=== PATIENT | female | born 1930 | race Caucasian/White ===

== ENCOUNTER 2016-09-18 05:52 | Emergency (ER) | payer OTHER, MEDICARE ==
[~2016-09-18] VITALS: Ht 170.2 cm; Wt 106.0 kg
[~2016-09-18 05:52] MED LIST: AMLODIPINE BESYL5 MG PO; ANTIVERT25 MG PO; ASPIR 8181 M1 PO; ATIVAN0.5 MG PO; AVAPRO150 MG PO; AVAPRO75 MG PO; AVENTYL,PAMELOR10 MG PO; AVENTYL,PAMELOR50 MG PO; AYR SALINE NA14.1 GM BOTH NARES; CIPRO500 MG PO; CLEOCIN150 MG PO; CLOPIDOGREL75 MG PO; DAILY VALUE1 EACH PO; ESSENTIAL DAIL1 EACH PO; FISH OIL300 MG PO; FLORASTOR250 MG PO; FLUPHENAZINE HCL1 MG PO; GABAPENTIN300 MG PO; LEVOTHYROXINE137 MCG PO; LORAZEPAM0.5 MG PO; MIRALAX255 GM PO; MIRTAZAPINE15 MG PO; MULTIVITAMIN1 EAC2 PO; NEILMED SINUS1 EAC1 NS; NEURONTIN300 MG PO; NORTRIPTYLINE H10 MG PO; NORTRIPTYLINE H25 MG PO; NORVASC2.5 MG PO; OMEGA-31000 M1 PO; PAMELOR50 MG PO; PLAVIX75 MG PO; PRAVASTATIN SOD40 MG PO; PRENATAL VITAM1 EAC4 PO; PROBIOTIC250 MG PO; PROLIXIN1 MG PO; RANITIDINE HCL75 MG PO; REMERON15 M2 PO; SALINE NASAL SP45 ML BOTH NARES; STOOL SOFTENER100 MG PO; SYSTANE 0.3-0.1 EACH BOTH EYES; SYSTANE NIGHTT3.5 GM BOTH EYES; SYSTANE ULTRA 015 ML BOTH EYES; TYLENOL EXTRA500 MG PO; TYLENOL REGULA325 MG PO; VITAMIN D1000 INTUN PO; ZANTAC75 M1 PO; ZITHROMAX Z-PA250 MG PO
[2016-09-18 06:14] LABS: HEMATOCRIT 33.1 % (36.0-46.0); MCH 25.8 PG (29.0-34.0); MCHC 30.2 G/DL (30.0-36.0); MCV 85.5 FL (83-99); MEAN PLAT.VOLUME 11.2 uM^3 (9.5-12.4); PLATELET COUNT 281 K/uL (156-360); RBC DIS.WIDTH-SD 52.7 % (39-53); RED BLOOD COUNT 3.87 M/uL (3.80-5.20); WHITE BLOOD COUNT 5.5 K/uL (4.1-10.2)
[2016-09-18 06:17] LABS: ADD MIUA? YES; BILIRUBIN NEGATIVE; BLOOD NEGATIVE; COLOR YELLOW ((YELLOW)); GLUCOSE (STRIP) NEGATIVE; KETONES NEGATIVE; LEUKOCYTES LARGE; NITRITE NEGATIVE; PROTEIN (STRIP) NEGATIVE; UROBILINOGEN 0.2 MG/DL (0.2-1.0)
[2016-09-18 06:22] LABS: CHLORIDE 104 mEq/L (99-109); POTASSIUM 4.3 mEq/L (3.7-5.4); SODIUM 140 mEq/L (136-147)
[2016-09-18 06:24] LABS: GLUCOSE 101 mg/dL (70-99)
[2016-09-18 06:25] LABS: ANION GAP 9 MEQ/L (2-14)
[2016-09-18 06:28] LABS: GFR ESTIMATE (CALCULATED) 50 mL/min/
[2016-09-18 06:29] LABS: UREA NITROGEN (BUN) 19 mg/dL (9-23)
[2016-09-18 06:30] LABS: BACTERIA RARE /HPF; BUDDING YEAST 1+; EPITHELIAL CELLS RARE /HPF; MUCUS NONE SEEN /LPF; RED BLOOD CELLS 0-5 /HPF (0-5); UCUL ADDED? YES; UNCLASSIFIED CASTS 0-5 /LPF; WHITE BLOOD CELLS TNTC /HPF (0-5)
[2016-09-18 06:33] LABS: INFLUENZA A VIRAL ANTIGEN NEGATIVE; INFLUENZA B VIRAL ANTIGEN NEGATIVE
[2016-09-18] MEDS ORDERED: LEVAQUIN500 MG PO (06:53)
[2016-09-18 09:46] VITALS: BP 143/58
== END 2016-09-18 09:52 | disposition home or self-care (01) ==
LOC: EME 05:52
PROVIDERS: Emergency Medicine
DX: S00.93XA Contusion of unspecified part of head, initial encounter (principal); N39.0 Urinary tract infection, site not specified; J06.9 Acute upper respiratory infection, unspecified; M79.605 Pain in left leg; W01.0XXA Fall on same level from slipping, tripping and stumbling without subsequent striking against object, initial encounter; I10 Essential (primary) hypertension; Z86.73 Personal history of transient ischemic attack (TIA), and cerebral infarction without residual deficits; Z96.642 Presence of left artificial hip joint; Z90.5 Acquired absence of kidney; Z88.0 Allergy status to penicillin; Z88.2 Allergy status to sulfonamides; Z87.891 Personal history of nicotine dependence
CPT/HCPCS: 70450; 71010; 73502; 80048; 81003; 85027; 87077; 87086; 87186; 87502; 99281; 99285

== ENCOUNTER 2016-10-06 06:48 | Inpatient (IN) | payer OTHER, MEDICARE ==
[~2016-10-06] VITALS: Ht 170.2 cm; Wt 107.4 kg
[~2016-10-06 06:48] MED LIST changes: +LEVAQUIN500 MG PO
[2016-10-06 08:52] LABS: BASE EXCESS 2.9 mEq/L (-3 to +3); BICARBONATE 27.9 mEq/L (22-26); CARBOXY HGB 1.6 % (0-5); PCO2 44 mm Hg (35-45); PO2 83 mm Hg (80-100); pH 7.41 (7.35-7.45)
[2016-10-06 08:53] LABS: EOSINOPHIL COUNT 0.2 K/uL (0-0.3); HEMATOCRIT 19.3 % (36.0-46.0); IMMATURE GRANULOCYTE (%) 0.6 % (0.0-0.7); IMMATURE GRANULOCYTE COUNT 0.1 K/uL; LYMPHOCYTE COUNT 1.7 K/uL (1.0-2.8); MCH 26.2 PG (29.0-34.0); MCHC 30.6 G/DL (30.0-36.0); MCV 85.8 FL (83-99); MEAN PLAT.VOLUME 11.4 uM^3 (9.5-12.4); MONOCYTE (%) 11.4 % (3-12); MONOCYTE COUNT 1.9 K/uL (0-0.8); NEUTROPHIL (%) 76.7 % (45-76); RBC DIS.WIDTH-CV 15.7 % (11.8-14.6); RBC DIS.WIDTH-SD 49.1 % (39-53)
[2016-10-06 08:58] LABS: COMMENTS - BLOOD GASES C+; DEVICE NC; O2 FLOW 3.5 L/MIN; SITE RR; TOTAL RESP RATE 16 resp/min
[2016-10-06] MEDS ORDERED: SENEXON8.6 MG PO (08:59)
[2016-10-06 09:06] LABS: ADD MIUA? NO; BILIRUBIN NEGATIVE; BLOOD NEGATIVE; COLOR YELLOW ((YELLOW)); GLUCOSE (STRIP) NEGATIVE; KETONES NEGATIVE; LEUKOCYTES NEGATIVE; NITRITE NEGATIVE; PROTEIN (STRIP) 30; SPECIFIC GRAVITY 1.019 (1.000-1.030); UCUL ADDED? NO; UROBILINOGEN 0.2 MG/DL (0.2-1.0)
[2016-10-06 09:08] LABS: ALKALINE PHOSPHATASE 83 IU/L (3-129); ANION GAP 8 MEQ/L (2-14); CHLORIDE 100 MEQ/L (99-109); GFR ESTIMATE (CALCULATED) > 59 mL/min/; GLUCOSE 99 mg/dL (70-99); SAMPLE HEMOLYSIS CHECK 0; SAMPLE ICTERIC CHECK 0; SAMPLE LIPEMIA CHECK 0; SODIUM 134 MEQ/L (136-147); TOTAL BILIRUBIN 0.6 MG/DL (0.0-1.0); UREA NITROGEN (BUN) 23 mg/dL (9-23)
[2016-10-06 09:09] LABS: TROP-I INTERPRETATION NEGATIVE; TROPONIN-I < 0.01 ng/mL (0.0-0.30)
[2016-10-06 09:15] LABS: PLATELET COUNT 420 K/uL (156-360); RED BLOOD COUNT 2.25 M/uL (3.80-5.20)
[2016-10-06 12:32] VITALS: BP 135/67
[2016-10-06] MEDS ORDERED: RANITIDINE HCL150 MG PO (13:25)
[2016-10-06] MEDS ORDERED: DAILY VITE1 EAC1 PO (13:28)
[2016-10-06] MEDS ORDERED: SENEXON-S TABL1 EACH PO (13:32)
[2016-10-06] MEDS ORDERED: TYLENOL EXTRA500 MG PO (13:34)
[2016-10-06] MEDS ORDERED: ATIVAN0.5 MG PO (13:35)
[2016-10-06] MEDS ORDERED: NYAMYC60 GM TP (13:39)
[2016-10-06] MEDS ORDERED: TESSALON PERLE100 MG PO (13:40)
[2016-10-06 17:56] VITALS: BP 180/77
[2016-10-06 18:14] LABS: INTER. NORMALIZED RATIO 1.1; PROTHROMBIN TIME 11.2 (9.2-11.2); PTT 29.8 (25-32)
[2016-10-06 20:30] VITALS: BP 144/66
[2016-10-06 22:33] VITALS: BP 152/62
[2016-10-06 22:53] VITALS: BP 151/59
[2016-10-06 23:57] VITALS: BP 129/52
[2016-10-07] VITALS (8 sets, daily range): BP systolic 130–176; BP diastolic 58–79
[2016-10-07 03:39] LABS: HEMATOCRIT 34.2 % (36.0-46.0); MCH 26.7 PG (29.0-34.0); MCHC 31.3 G/DL (30.0-36.0); MCV 85.3 FL (83-99); MEAN PLAT.VOLUME 10.5 uM^3 (9.5-12.4); PLATELET COUNT 317 K/uL (156-360); RBC DIS.WIDTH-CV 15.5 % (11.8-14.6); RBC DIS.WIDTH-SD 48.7 % (39-53)
[2016-10-07 03:41] LABS: RED BLOOD COUNT 4.01 M/uL (3.80-5.20); WHITE BLOOD COUNT 11.3 K/uL (4.1-10.2)
[2016-10-07 03:43] LABS: INTER. NORMALIZED RATIO 1.1; PROTHROMBIN TIME 11.5 (9.2-11.2)
[2016-10-07 03:45] LABS: CHLORIDE 101 mEq/L (99-109); POTASSIUM 4.1 mEq/L (3.7-5.4); SODIUM 135 mEq/L (136-147)
[2016-10-07 03:47] LABS: GLUCOSE 96 mg/dL (70-99)
[2016-10-07 03:49] LABS: ANION GAP 11 MEQ/L (2-14)
[2016-10-07 03:51] LABS: GFR ESTIMATE (CALCULATED) > 59 mL/min/
[2016-10-07 03:52] LABS: UREA NITROGEN (BUN) 18 mg/dL (9-23)
[2016-10-07 08:16] LABS: INTERNAL CONTROL VALID? YES
[2016-10-07 10:33] LABS: POC NON-PRINT COM 1 ND
[2016-10-07 19:54] LABS: HEMATOCRIT 35.4 % (36.0-46.0)
[2016-10-08 04:08] VITALS: BP 155/68
[2016-10-08 06:54] LABS: EOSINOPHIL (%) 1.9 % (0-5); EOSINOPHIL COUNT 0.2 K/uL (0-0.3); HEMATOCRIT 34.1 % (36.0-46.0); IMMATURE GRANULOCYTE (%) 0.2 % (0.0-0.7); INSTRUMENT ABS NEUTROPHIL CT 6.2 K/uL; MCH 27.2 PG (29.0-34.0); MCHC 31.1 G/DL (30.0-36.0); MCV 87.4 FL (83-99); MEAN PLAT.VOLUME 11.1 uM^3 (9.5-12.4); MONOCYTE (%) 13.2 % (3-12); MONOCYTE COUNT 1.1 K/uL (0-0.8); NEUTROPHIL COUNT 6.2 K/uL (1.8-6.4); PLATELET COUNT 357 K/uL (156-360); RBC DIS.WIDTH-CV 15.9 % (11.8-14.6); RBC DIS.WIDTH-SD 50.2 % (39-53); WHITE BLOOD COUNT 8.5 K/uL (4.1-10.2)
[2016-10-08 07:21] LABS: ANION GAP 9 MEQ/L (2-14); CHLORIDE 102 MEQ/L (99-109); GFR ESTIMATE (CALCULATED) > 59 mL/min/; GLUCOSE 80 mg/dL (70-99); POTASSIUM 4.3 MEQ/L (3.7-5.4); SAMPLE HEMOLYSIS CHECK 0; SAMPLE ICTERIC CHECK 0; SAMPLE LIPEMIA CHECK 0; SODIUM 136 MEQ/L (136-147); UREA NITROGEN (BUN) 15 mg/dL (9-23)
[2016-10-08 07:31] VITALS: BP 162/70
[2016-10-08 11:18] VITALS: BP 129/59
[2016-10-08 15:04] VITALS: BP 156/78
[2016-10-08 20:33] VITALS: BP 164/77
[2016-10-08 23:52] VITALS: BP 183/86
[2016-10-09] VITALS (8 sets, daily range): BP systolic 143–193; BP diastolic 64–88
[2016-10-09 05:39] LABS: HEMATOCRIT 36.7 % (36.0-46.0); MCH 26.5 PG (29.0-34.0); MCHC 30.5 G/DL (30.0-36.0); MEAN PLAT.VOLUME 10.8 uM^3 (9.5-12.4); PLATELET COUNT 370 K/uL (156-360); RBC DIS.WIDTH-CV 15.6 % (11.8-14.6); RBC DIS.WIDTH-SD 49.5 % (39-53); RED BLOOD COUNT 4.22 M/uL (3.80-5.20); WHITE BLOOD COUNT 6.8 K/uL (4.1-10.2)
[2016-10-09 06:01] LABS: ANION GAP 8 MEQ/L (2-14); CHLORIDE 96 MEQ/L (99-109); GFR ESTIMATE (CALCULATED) > 59 mL/min/; GLUCOSE 91 mg/dL (70-99); SAMPLE HEMOLYSIS CHECK 0; SAMPLE ICTERIC CHECK 0; SAMPLE LIPEMIA CHECK 0; SODIUM 135 MEQ/L (136-147); UREA NITROGEN (BUN) 10 mg/dL (9-23)
[2016-10-10 04:54] VITALS: BP 186/84
[2016-10-10 06:19] LABS: HEMATOCRIT 39.6 % (36.0-46.0); MCH 26.4 PG (29.0-34.0); MCHC 30.1 G/DL (30.0-36.0); MCV 87.8 FL (83-99); MEAN PLAT.VOLUME 10.3 uM^3 (9.5-12.4); PLATELET COUNT 374 K/uL (156-360); RBC DIS.WIDTH-CV 15.3 % (11.8-14.6); RED BLOOD COUNT 4.51 M/uL (3.80-5.20); WHITE BLOOD COUNT 6.6 K/uL (4.1-10.2)
[2016-10-10 06:47] LABS: ANION GAP 8 MEQ/L (2-14); CHLORIDE 95 MEQ/L (99-109); GFR ESTIMATE (CALCULATED) > 59 mL/min/; GLUCOSE 74 mg/dL (70-99); POTASSIUM 4.2 MEQ/L (3.7-5.4); SAMPLE HEMOLYSIS CHECK 0; SAMPLE ICTERIC CHECK 0; SAMPLE LIPEMIA CHECK 0; SODIUM 134 MEQ/L (136-147); UREA NITROGEN (BUN) 11 mg/dL (9-23)
[2016-10-10 07:35] LABS: ABS NEUTROPHIL COUNT 4.5; EOSINOPHIL ABS CT 0; INSTRUMENT ABS NEUTROPHIL CT 4.1 K/uL; LYMPHOCYTES 12.2 % (15.0-45.0); SEG.NEUTROPHILS 68.7 % (46.0-76.0)
[2016-10-10 08:03] VITALS: BP 182/80
[2016-10-10 08:25] VITALS: BP 162/85
[2016-10-10 11:48] VITALS: BP 168/76
[2016-10-10 16:15] VITALS: BP 143/66
[2016-10-10 20:39] VITALS: BP 145/85
[2016-10-11] VITALS (7 sets, daily range): BP systolic 123–189; BP diastolic 58–82
[2016-10-11 06:01] LABS: HEMATOCRIT 38.6 % (36.0-46.0); MCH 26.6 PG (29.0-34.0); MCHC 30.6 G/DL (30.0-36.0); MCV 86.9 FL (83-99); MEAN PLAT.VOLUME 10.2 uM^3 (9.5-12.4); PLATELET COUNT 363 K/uL (156-360); RBC DIS.WIDTH-CV 15.3 % (11.8-14.6); RBC DIS.WIDTH-SD 48.7 % (39-53); RED BLOOD COUNT 4.44 M/uL (3.80-5.20); WHITE BLOOD COUNT 6.9 K/uL (4.1-10.2)
[2016-10-12 04:42] VITALS: BP 126/65
[2016-10-12 08:29] VITALS: BP 136/67
[2016-10-12 09:55] LABS: HEMATOCRIT 41.6 % (36.0-46.0); MCH 27.7 PG (29.0-34.0); MCHC 31.3 G/DL (30.0-36.0); MCV 88.7 FL (83-99); MEAN PLAT.VOLUME 10.4 uM^3 (9.5-12.4); PLATELET COUNT 384 K/uL (156-360); RBC DIS.WIDTH-CV 15.5 % (11.8-14.6); RED BLOOD COUNT 4.69 M/uL (3.80-5.20); WHITE BLOOD COUNT 6.6 K/uL (4.1-10.2)
[2016-10-12 11:36] VITALS: BP 122/59; BP 163/74
[2016-10-12] MEDS ORDERED: LEVAQUIN750 MG PO (13:47)
[2016-10-12] MEDS ORDERED: HYGROTON25 MG PO (13:47)
[2016-10-12] MEDS ORDERED: PROTONIX40 MG PO (13:47)
[2016-10-12 16:50] VITALS: BP 144/62
== END 2016-10-12 17:16 | DRG 871 ==
LOC: EME → EDBD 06:48 → EME 06:48 → 4EAST 11:47 → EDOF 11:47 → 3EAST 11:47 → EDOF 13:12 → 4EAST 17:11 → 3EAST 10-08 14:21
PROVIDERS: Emergency Medicine; Hospitalist; Internal Medicine; Internal Medicine Gastroenterology
PROC: 0DB68ZX Excision of Stomach, Via Natural or Artificial Opening Endoscopic, Diagnostic (ICD-10-PCS; principal; 2016-10-07)
PROC: 0DBP8ZX Excision of Rectum, Via Natural or Artificial Opening Endoscopic, Diagnostic (ICD-10-PCS; 2016-10-09)
PROC: 30233N1 Transfusion of Nonautologous Red Blood Cells into Peripheral Vein, Percutaneous Approach (ICD-10-PCS; 2016-10-09)
DX: A41.9 Sepsis, unspecified organism (principal); J18.9 Pneumonia, unspecified organism; K92.1 Melena; K92.2 Gastrointestinal hemorrhage, unspecified; E87.1 Hypo-osmolality and hyponatremia; J45.901 Unspecified asthma with (acute) exacerbation; C78.00 Secondary malignant neoplasm of unspecified lung; R59.0 Localized enlarged lymph nodes; C79.89 Secondary malignant neoplasm of other specified sites; D62 Acute posthemorrhagic anemia; I10 Essential (primary) hypertension; Q27.33 Arteriovenous malformation of digestive system vessel; K62.1 Rectal polyp; G62.9 Polyneuropathy, unspecified; R26.2 Difficulty in walking, not elsewhere classified; K64.8 Other hemorrhoids; R41.82 Altered mental status, unspecified; E83.52 Hypercalcemia; E03.9 Hypothyroidism, unspecified; J44.9 Chronic obstructive pulmonary disease, unspecified; F32.9 Major depressive disorder, single episode, unspecified; K21.9 Gastro-esophageal reflux disease without esophagitis; Z96.642 Presence of left artificial hip joint; Z88.2 Allergy status to sulfonamides; Z88.0 Allergy status to penicillin; Z88.1 Allergy status to other antibiotic agents; Z88.8 Allergy status to other drugs, medicaments and biological substances; Z85.528 Personal history of other malignant neoplasm of kidney; Z66 Do not resuscitate; Z87.891 Personal history of nicotine dependence; Z86.73 Personal history of transient ischemic attack (TIA), and cerebral infarction without residual deficits
CPT/HCPCS: 36600; 70450; 71020; 71275; 80048; 80053; 80069; 81003; 82272; 82803; 83605; 84484; 85014; 85018; 85025; 85027; 85610; 85730; 86850; 86900; 86901; 86920; 87040; 87070; 87205; 87449; 88305; 88342 TC; 93005; 94667; 94760; 94799; 97530 GP; 99202; 99281; 99285; C9113; J1940; J1956; J2405; J7042; P9016

== ENCOUNTER 2016-10-13 13:25 | Inpatient (IN) | payer OTHER, MEDICARE ==
[~2016-10-13] VITALS: Ht 170.2 cm; Wt 106.4 kg
[~2016-10-13 13:25] MED LIST changes: +DAILY VITE1 EAC1 PO; +HYGROTON25 MG PO; +LEVAQUIN750 MG PO; +NYAMYC60 GM TP; +PROTONIX40 MG PO; +RANITIDINE HCL150 MG PO; +SENEXON-S TABL1 EACH PO; +SENEXON8.6 MG PO; +TESSALON PERLE100 MG PO
[2016-10-13 14:31] LABS: ADD MIUA? YES; BILIRUBIN NEGATIVE; BLOOD SMALL; COLOR YELLOW ((YELLOW)); GLUCOSE (STRIP) NEGATIVE; KETONES NEGATIVE; LEUKOCYTES TRACE; NITRITE POSITIVE; PROTEIN (STRIP) NEGATIVE; SPECIFIC GRAVITY 1.014 (1.000-1.030); UROBILINOGEN 0.2 MG/DL (0.2-1.0)
[2016-10-13 14:36] LABS: BASE EXCESS 5.8 mEq/L (-3 to +3); BICARBONATE 29.8 mEq/L (22-26); CARBOXY HGB 1.7 % (0-5); METHEMOGLOBIN 0.9 % (0-1.5); PCO2 40 mm Hg (35-45); pH 7.48 (7.35-7.45)
[2016-10-13 14:38] LABS: COMMENTS - BLOOD GASES A+C+; PO2 54 mm Hg (80-100); SITE LR
[2016-10-13 14:39] LABS: DEVICE NC; O2 FLOW 6 L/MIN
[2016-10-13 14:57] LABS: CARBON DIOXIDE (BICARBONATE) 34.7 MEQ/L (20-31)
[2016-10-13 15:00] LABS: BACTERIA 3+ /HPF; EPITHELIAL CELLS 2+ /HPF; MUCUS NONE SEEN /LPF; RED BLOOD CELLS RARE /HPF (0-5); UCUL ADDED? NO; WHITE BLOOD CELLS RARE /HPF (0-5)
[2016-10-13 15:04] LABS: CHLORIDE 94 mEq/L (99-109); POTASSIUM 4.1 mEq/L (3.7-5.4); SODIUM 135 mEq/L (136-147)
[2016-10-13 15:05] LABS: GLUCOSE 132 mg/dL (70-99)
[2016-10-13 15:06] LABS: HEMATOCRIT 44.2 % (36.0-46.0); MCH 26.8 PG (29.0-34.0); MCV 86.5 FL (83-99); MEAN PLAT.VOLUME 10.3 uM^3 (9.5-12.4); PLATELET COUNT 424 K/uL (156-360); RBC DIS.WIDTH-CV 15.4 % (11.8-14.6); RBC DIS.WIDTH-SD 49.1 % (39-53); RED BLOOD COUNT 5.11 M/uL (3.80-5.20); WHITE BLOOD COUNT 21.8 K/uL (4.1-10.2)
[2016-10-13 15:07] LABS: ANION GAP 12 MEQ/L (2-14)
[2016-10-13 15:09] LABS: GFR ESTIMATE (CALCULATED) 33 mL/min/
[2016-10-13 15:10] LABS: UREA NITROGEN (BUN) 19 mg/dL (9-23)
[2016-10-13 15:16] LABS: TROP-I INTERPRETATION NEGATIVE; TROPONIN-I < 0.01 ng/mL (0.0-0.30)
[2016-10-13 22:00] VITALS: BP 150/70
[2016-10-13 23:07] VITALS: BP 148/70
[2016-10-13 23:56] LABS: METH RESISTANT S AUREUS PCR NEGATIVE (NEGATIVE)
[2016-10-13 23:57] LABS: PROBE CHECK PASS; SPECIMEN PROCESSING CONTROL PASS
[2016-10-14] VITALS (8 sets, daily range): BP systolic 119–197; BP diastolic 64–84
[2016-10-14 08:05] LABS: ANION GAP 8 MEQ/L (2-14); CHLORIDE 98 MEQ/L (99-109); POTASSIUM 3.7 MEQ/L (3.7-5.4); SAMPLE HEMOLYSIS CHECK 0; SAMPLE ICTERIC CHECK 0; SAMPLE LIPEMIA CHECK 0; SODIUM 133 MEQ/L (136-147); UREA NITROGEN (BUN) 18 mg/dL (9-23)
[2016-10-14 08:06] LABS: GFR ESTIMATE (CALCULATED) 56 mL/min/; GLUCOSE 97 mg/dL (70-99)
[2016-10-14 08:27] LABS: HEMATOCRIT 36.7 % (36.0-46.0); MCH 26.4 PG (29.0-34.0); RBC DIS.WIDTH-CV 15.6 % (11.8-14.6); RBC DIS.WIDTH-SD 50.5 % (39-53); RED BLOOD COUNT 4.17 M/uL (3.80-5.20); WHITE BLOOD COUNT 27.6 K/uL (4.1-10.2)
[2016-10-14 09:36] LABS: INTERNAL CONTROL VALID? YES
[2016-10-14 09:57] LABS: BASOPHIL COUNT 0.1 K/uL (0-0.1); EOSINOPHIL (%) 0.2 % (0-5); EOSINOPHIL COUNT 0.1 K/uL (0-0.3); HEMATOLOGY COMMENT 1 SMEAR COMPATIBLE; IMMATURE GRANULOCYTE (%) 1.1 % (0.0-0.7); IMMATURE GRANULOCYTE COUNT 0.3 K/uL; INSTRUMENT ABS NEUTROPHIL CT 25.1 K/uL; MEAN PLAT.VOLUME 11.1 uM^3 (9.5-12.4); MONOCYTE COUNT 1.1 K/uL (0-0.8); NEUTROPHIL (%) 90.9 % (45-76); NEUTROPHIL COUNT 25.1 K/uL (1.8-6.4); PLATELET COUNT 308 K/uL (156-360)
[2016-10-15 03:42] VITALS: BP 149/81
[2016-10-15 05:51] LABS: BASOPHIL COUNT 0.1 K/uL (0-0.1); EOSINOPHIL (%) 0.6 % (0-5); EOSINOPHIL COUNT 0.2 K/uL (0-0.3); HEMATOCRIT 31.9 % (36.0-46.0); IMMATURE GRANULOCYTE (%) 2.3 % (0.0-0.7); IMMATURE GRANULOCYTE COUNT 0.7 K/uL; INSTRUMENT ABS NEUTROPHIL CT 26.7 K/uL; LYMPHOCYTE COUNT 0.9 K/uL (1.0-2.8); MCH 26.7 PG (29.0-34.0); MCHC 31.3 G/DL (30.0-36.0); MCV 85.1 FL (83-99); MEAN PLAT.VOLUME 11.1 uM^3 (9.5-12.4); MONOCYTE (%) 4.2 % (3-12); MONOCYTE COUNT 1.3 K/uL (0-0.8); NEUTROPHIL (%) 89.6 % (45-76); NEUTROPHIL COUNT 26.7 K/uL (1.8-6.4); PLATELET COUNT 284 K/uL (156-360); RBC DIS.WIDTH-CV 15.4 % (11.8-14.6); RBC DIS.WIDTH-SD 47.7 % (39-53); RED BLOOD COUNT 3.75 M/uL (3.80-5.20); WHITE BLOOD COUNT 29.9 K/uL (4.1-10.2)
[2016-10-15 06:33] LABS: ANION GAP 8 MEQ/L (2-14); CHLORIDE 92 MEQ/L (99-109); GFR ESTIMATE (CALCULATED) > 59 mL/min/; GLUCOSE 85 mg/dL (70-99); POTASSIUM 3.7 MEQ/L (3.7-5.4); SAMPLE HEMOLYSIS CHECK 0; SAMPLE ICTERIC CHECK 0; SAMPLE LIPEMIA CHECK 0; SODIUM 131 MEQ/L (136-147); UREA NITROGEN (BUN) 14 mg/dL (9-23)
[2016-10-15 07:17] VITALS: BP 177/67
[2016-10-15 12:25] VITALS: BP 141/60
[2016-10-15 15:38] VITALS: BP 173/75
[2016-10-15 19:14] VITALS: BP 134/62
[2016-10-16 00:06] VITALS: BP 152/74
[2016-10-16 03:21] VITALS: BP 164/69
[2016-10-16 06:42] LABS: HEMATOCRIT 31.8 % (36.0-46.0); MCH 26.7 PG (29.0-34.0); MCHC 31.8 G/DL (30.0-36.0); MCV 84.1 FL (83-99); RBC DIS.WIDTH-CV 15.4 % (11.8-14.6); RBC DIS.WIDTH-SD 47.5 % (39-53); RED BLOOD COUNT 3.78 M/uL (3.80-5.20); WHITE BLOOD COUNT 22.6 K/uL (4.1-10.2)
[2016-10-16 07:09] LABS: ANION GAP 8 MEQ/L (2-14); CHLORIDE 92 MEQ/L (99-109); GFR ESTIMATE (CALCULATED) > 59 mL/min/; GLUCOSE 90 mg/dL (70-99); POTASSIUM 3.3 MEQ/L (3.7-5.4); SAMPLE HEMOLYSIS CHECK 0; SAMPLE ICTERIC CHECK 0; SAMPLE LIPEMIA CHECK 0; SODIUM 129 MEQ/L (136-147); UREA NITROGEN (BUN) 10 mg/dL (9-23)
[2016-10-16 08:00] VITALS: BP 135/62
[2016-10-16 08:29] LABS: MEAN PLAT.VOLUME 10.9 uM^3 (9.5-12.4); PLAT.SUFFICIENCY ADEQUATE; PLATELET COUNT 353 K/uL (156-360)
[2016-10-16 13:00] VITALS: BP 134/61
[2016-10-16 19:23] VITALS: BP 143/82
[2016-10-17] MEDS ORDERED: ATIVAN INTE2 MG/1 ML PO (11:43)
[2016-10-17] MEDS ORDERED: ATROPINE 1100 DROP/5 SL (11:43)
[2016-10-17] MEDS ORDERED: MORPHINE CON20 MG/M1 PO (11:43)
[2016-10-18 12:03] VITALS: BP 0/0
== END 2016-10-18 17:34 | DRG 871 ==
LOC: EME 13:25 → EDOF 19:56 → 4EAST 19:56 → 5EAST 10-16 18:26
PROVIDERS: Emergency Medicine; Family Medicine; Internal Medicine; Nurse Practitioner Family
DX: A41.9 Sepsis, unspecified organism (principal); J18.9 Pneumonia, unspecified organism; J96.01 Acute respiratory failure with hypoxia; N17.9 Acute kidney failure, unspecified; G93.41 Metabolic encephalopathy; E87.2 Acidosis; C78.00 Secondary malignant neoplasm of unspecified lung; C77.1 Secondary and unspecified malignant neoplasm of intrathoracic lymph nodes; C64.9 Malignant neoplasm of unspecified kidney, except renal pelvis; J98.11 Atelectasis; I10 Essential (primary) hypertension; F03.90 Unspecified dementia, unspecified severity, without behavioral disturbance, psychotic disturbance, mood disturbance, and anxiety; G62.9 Polyneuropathy, unspecified; E03.9 Hypothyroidism, unspecified; J45.909 Unspecified asthma, uncomplicated; K21.9 Gastro-esophageal reflux disease without esophagitis; G89.29 Other chronic pain; F32.9 Major depressive disorder, single episode, unspecified; E66.9 Obesity, unspecified; Z66 Do not resuscitate; Z68.30 Body mass index [BMI] 30.0-30.9, adult; Z88.0 Allergy status to penicillin; Z88.1 Allergy status to other antibiotic agents; Z88.2 Allergy status to sulfonamides
CPT/HCPCS: 36600; 70450; 71010; 71020; 71250; 80048; 80202; 81003; 82803; 83605; 83880; 84484; 85025; 85027; 86850; 86900; 86901; 87040; 87070; 87077; 87086; 87147; 87186; 87205; 87449; 87641; 93005; 93970; 94640; 94640 76; 94667; 94668; 94799; 99202; 99281; 99285; J0456; J0692; J1644; J1940; J1956; J2060; J2270; J3370; J7050; J7120

== ENCOUNTER 2017-05-12 13:39 | Emergency (ER) | payer OTHER, MEDICARE ==
[~2017-05-12] VITALS: Ht 165.1 cm; Wt 109.2 kg
[~2017-05-12 13:39] MED LIST changes: +ATIVAN INTE2 MG/1 ML PO; +ATROPINE 1100 DROP/5 SL; +MORPHINE CON20 MG/M1 PO
[2017-05-12 14:26] LABS: HEMATOCRIT 38.2 % (36.0-46.0); MCH 31.3 PG (29.0-34.0); MCHC 31.7 G/DL (30.0-36.0); MCV 98.7 FL (83-99); MEAN PLAT.VOLUME 11.2 uM^3 (9.5-12.4); PLATELET COUNT 251 K/uL (156-360); RBC DIS.WIDTH-CV 13.1 % (11.8-14.6); RBC DIS.WIDTH-SD 46.5 % (39-53); RED BLOOD COUNT 3.87 M/uL (3.80-5.20); WHITE BLOOD COUNT 6.6 K/uL (4.1-10.2)
[2017-05-12 14:36] LABS: CHLORIDE 100 mEq/L (99-109); POTASSIUM 4.3 mEq/L (3.7-5.4); SODIUM 134 mEq/L (136-147)
[2017-05-12 14:38] LABS: GLUCOSE 124 mg/dL (70-99)
[2017-05-12 14:39] LABS: ANION GAP 8 MEQ/L (2-14)
[2017-05-12 14:42] LABS: GFR ESTIMATE (CALCULATED) > 59 mL/min/
[2017-05-12 14:43] LABS: UREA NITROGEN (BUN) 18 mg/dL (9-23)
[2017-05-12] MEDS ORDERED: KEFLEX500 MG PO (20:08)
[2017-05-12 22:09] VITALS: BP 182/91
== END 2017-05-12 22:12 ==
LOC: EME 13:39
PROVIDERS: Physician Assistant
PROC: 2Y41X5Z Packing of Nasal Region using Packing Material (ICD-10-PCS; principal; 2017-05-12)
DX: R04.0 Epistaxis (principal); C79.89 Secondary malignant neoplasm of other specified sites; Z85.528 Personal history of other malignant neoplasm of kidney; Z85.118 Personal history of other malignant neoplasm of bronchus and lung; Z92.3 Personal history of irradiation; I10 Essential (primary) hypertension; K21.9 Gastro-esophageal reflux disease without esophagitis; E03.9 Hypothyroidism, unspecified; G62.9 Polyneuropathy, unspecified; E21.3 Hyperparathyroidism, unspecified; F32.9 Major depressive disorder, single episode, unspecified; F41.9 Anxiety disorder, unspecified; Z86.73 Personal history of transient ischemic attack (TIA), and cerebral infarction without residual deficits; Z96.642 Presence of left artificial hip joint; Z90.5 Acquired absence of kidney; Z90.2 Acquired absence of lung [part of]; Z87.891 Personal history of nicotine dependence
CPT/HCPCS: 70487; 80048; 85027; 99281; 99285; J7040

== ENCOUNTER 2017-07-16 19:11 | Emergency (ER) | payer OTHER, MEDICARE ==
[~2017-07-16] VITALS: Ht 170.2 cm; Wt 96.1 kg
[~2017-07-16 19:11] MED LIST changes: +KEFLEX500 MG PO
[2017-07-16 20:29] LABS: HEMATOCRIT 36.9 % (36.0-46.0); HEMOGLOBIN 12.2 G/DL (11.9-15.5); MCH 30.5 PG (29.0-34.0); MCHC 33.1 G/DL (30.0-36.0); MCV 92.3 FL (83-99); PLATELET COUNT 299 K/uL (156-360); RBC DIS.WIDTH-CV 13.1 % (11.8-14.6); RBC DIS.WIDTH-SD 44.9 % (39-53); WHITE BLOOD COUNT 10.3 K/uL (4.1-10.2)
[2017-07-16 20:38] LABS: PTT 28.3 SEC (25-37)
[2017-07-16 20:39] LABS: CHLORIDE 97 mEq/L (99-109); POTASSIUM 4.2 mEq/L (3.7-5.4); SODIUM 134 mEq/L (136-147)
[2017-07-16 20:41] LABS: GLUCOSE 111 mg/dL (70-99)
[2017-07-16 20:45] LABS: CREATININE 0.7 mg/dL (0.6-1.3); GFR ESTIMATE (CALCULATED) > 59 mL/min/; UREA NITROGEN (BUN) 21 mg/dL (9-23)
[2017-07-16 21:57] VITALS: BP 131/80
== END 2017-07-16 22:07 ==
LOC: EME 19:11
PROVIDERS: Emergency Medicine
DX: R04.0 Epistaxis (principal); I10 Essential (primary) hypertension; K21.9 Gastro-esophageal reflux disease without esophagitis; E03.9 Hypothyroidism, unspecified; F32.9 Major depressive disorder, single episode, unspecified; F41.9 Anxiety disorder, unspecified; Z87.440 Personal history of urinary (tract) infections; Z86.73 Personal history of transient ischemic attack (TIA), and cerebral infarction without residual deficits; Z96.642 Presence of left artificial hip joint; Z87.891 Personal history of nicotine dependence; Z88.2 Allergy status to sulfonamides; Z88.0 Allergy status to penicillin; Z88.1 Allergy status to other antibiotic agents; Z88.8 Allergy status to other drugs, medicaments and biological substances
CPT/HCPCS: 80048; 85027; 85610; 85730; 99281; 99284